=== PATIENT | female | born 1960 | race Caucasian/White ===

== ENCOUNTER 2019-04-07 05:39 | Day surgery (SDC) ==
--- NOTE | 2019-04-06 14:30 | EKG Report ---
Test Performed on : 04/06/2019 2:13:34 PM Test Reason : PAT Blood Pressure : / mmHG Vent. Rate : 087 BPM Atrial Rate : 187 BPM P-R Int : 000 ms QRS Dur : 086 ms QT Int : 350 ms P-R-T Axes : 000 043 068 degrees QTc Int : 421 ms Atrial fibrillation. Abnormal ECG When compared with ECG of 31-AUG-2016 20:00, Atrial fibrillation. has replaced Sinus rhythm. Vent. rate has increased BY 29 BPM Confirmed by Anthony REGAN, Harry Bentley ([id number]) on 04/08/2019 6:35:46 PM
[2019-04-06 14:43] LABS: HEMATOCRIT 40.4 % (37.0-47.0); HEMOGLOBIN 13.6 g/dL (12.0-16.0); MCH 30.4 PG (27-31); MCHC 33.7 g/dL (33-37); MCV 90.4 FL (81-99); MPV 9.6 FL (7.4-10.4); RBC 4.47 XMIL (4.2-5.4); RDW 13.1 % (11.5-14.5); WBC 11.59 X1000 (4.8-10.8)
[2019-04-06 15:42] LABS: AGAP 12; BUN 18 mg/dL (8-22); CALCIUM 9.2 mg/dL (8.8-10.2); CHLORIDE 101 mmol/L (98-107); COSMO 283; CREATININE 0.7 mg/dL (0.5-0.9); ESTIMATED GFR > 60; GLUCOSE 93 mg/dL (70-104); POTASSIUM 3.5 mmol/L (3.5-5.1); SODIUM 141 mmol/L (136-145); TCO2 28 mmol/L (25-35)
[2019-04-07] MEDS ORDERED: VANCOMYCIN 1 GM/NS 1 GM/250 ML IVPB ONE (07:26)
[2019-04-07] MEDS ORDERED: PEPCID ONE (07:26)
[2019-04-07] MEDS ORDERED: LR 1,000 ML ONE (07:26)
[2019-04-07] MEDS ORDERED: REGLAN ONE (07:26)
--- NOTE | 2019-04-07 07:48 | Diag Imaging Result Doc PS360 ---
EXAM: LYMPHOSCINTIGRAPHY W/IMG HISTORY: RIGHT AND LEFT BREAST MASS TECHNIQUE: Imaging following lymphoscintigraphy COMPARISON: None. FINDINGS: 989 uCi of lymphocytic administered. Images of different angles over the chest, axilla, and lower neck performed. There are at least three foci of increased activity lateral to the injection site, and possibly four areas of increased activity. IMPRESSION: Multiple areas of increased activity in the lateral left breast or axilla. Electronically signed by Abhinav Rizzo 04/07/2019 7:46 AM
[2019-04-07] MEDS ORDERED: XYLOCAINE-MPF 2% ONE (08:07)
[2019-04-07] MEDS ORDERED: QUELICIN (DOSE) ONE (08:07)
[2019-04-07] MEDS ORDERED: DIPRIVAN 1% ONE (08:08)
[2019-04-07] MEDS ORDERED: METHYLENE BLUE 0.5% ONE (08:09)
[2019-04-07] MEDS ORDERED: FENTANYL ONE (08:47)
[2019-04-07] MEDS ORDERED: ZEMURON ONE (08:52)
[2019-04-07] MEDS ORDERED: DECADRON ONE (10:08)
[2019-04-07] MEDS ORDERED: ZOFRAN ONE (10:08)
--- NOTE | 2019-04-07 11:47 | OPERATIVE NOTE ---
PROCEDURE DATE: 04/07/2019 PROCEDURE: Bilateral sentinel lymph node biopsy; bilateral modified radical mastectomy. SURGEON: Vish Bennett MD. CHICKEN RAISER: Marlo Romero RN. PREOPERATIVE DIAGNOSIS: Bilateral cancer of the breast. POSTOPERATIVE DIAGNOSIS: Bilateral cancer of the breast with one positive node on each axilla. DESCRIPTION OF OPERATION: After satisfactory general endotracheal anesthesia was achieved, both breasts and arms were prepped and draped in a sterile fashion. Sherman node injections had already occurred and nodes did light up in both axillae. I began on the left side, made an elliptical meli around the nipple areolar complex with a transverse extension into the axilla. We transversely incised the skin in the left axilla, dissected into the axillary fat. We then interrogated the left axilla with the gamma probe. A couple of hot areas were noted. We dissected deep into the axilla and clipped off the feeding lymphatics, removed 2 lymph nodes and got 10 second counts. They were sent for frozen section. While we waited for those results, we then incised the skin in an elliptical fashion in the area that was marked around the nipple areolar complex. We placed our skin hooks superiorly and developed a superior flap up to the clavicle. We then changed the hooks inferiorly and developed an inferior flap down in the rectus muscle. We then began dissecting the breast off the pectoralis major muscle from medial to lateral. As we reached the lateral portion of the pectoralis major, we got word back 1 of the 2 nodes were positive. So, we decided to proceed with dissection of the axilla. We then dissected deep and identified the latissimus muscle, followed it superiorly to its tendinous portion and just anterior to that we found the axillary vein. We then dissected lateral to medial. Small veins were ligated and divided coming off the inferior aspect of the vein. We then dissected at the chest wall and identified the long thoracic nerve and protected it. We dissected in the mid portion of the axillary vein, identified the thoracodorsal nerve as well. We then clamped the tissue between those 2 nerves, ligating it superiorly and then sweeping the tissue inferiorly until the nerves were seen to dive into the respective muscles. The rest of the axillary contents were dissected. We then took the left breast off the chest wall. We marked the apex of the axilla with a stitch and then handed off the specimen. Moist gauze was placed underneath the skin flaps and then the left axilla. We then turned our attention to the right side. Once again, we marked the skin in an elliptical fashion. I changed gloves at this point. We had a new knife for incision. We made a transverse incision in the right axilla, dissected deep into the axillary fat and we then identified a couple of nodes with activity and 2 nodes that did not have activity. We sent off four nodes. While we awaited for those frozen sections, we went ahead and incised the skin in an elliptical fashion around the nipple areolar complex. This tumor was more behind the nipple than the other one on the left, which was more lateral. We dissected then superiorly with the skin hooks in place up to the clavicle and inferiorly we dissected down to once again, the rectus muscle. We then began dissection of the breast from medial to lateral off the pectoralis major muscle until we reached the lateral border. We then got word back that 1 of the 4 nodes were positive. So again, we decided to dissect the axilla. We identified the latissimus muscle, followed it cephalad to its tendinous portion and then identified the axillary vein laterally in the axilla. We dissected from lateral to medial. Small veins were ligated and divided. We dissected against the chest wall and identified the long thoracic nerve. We then dissected the thoracodorsal nerve as well. We divided the tissue between these two. We then continued to dissect inferiorly until the nerves were seen to dive into the respective muscles. We then finished the axillary dissection on the right and then took the right breast off the chest wall. We again marked the apex of the axilla with a stitch and handed off the specimen. We irrigated out the chest wall and axilla. Hemostasis was satisfactory. We went ahead and placed a Jose drain medially underneath the superior skin flap and then one laterally going into the axilla. These drains were secured to the skin with 0 silk. We then closed the skin with janki. Negative pressure was applied. We did the same thing on the left. Placing the drain medially under the superior skin flap and laterally into the axilla securing the drain to the skin with 0 silk stitches. Hemostasis was satisfactory. We closed the skin with janki. Negative pressure was applied. Sterile dressings were applied. She tolerated it well and was sent to the recovery room in satisfactory condition. cc: Vish Bennett MD
[2019-04-07] MEDS ORDERED: NORCO-10 ONE (12:44)
[2019-04-07] MEDS ORDERED: NORCO-10 PO PRN (13:35)
[2019-04-07] MEDS ORDERED: DILAUDID IV PRN (13:35)
[2019-04-07] MEDS ORDERED: ZOFRAN IV PRN (13:35)
[2019-04-07] MEDS: LR 1,000 ML IV SCH ×2 (14:33→23:29)
[2019-04-07] MEDS: TYLENOL PO PRN (18:17)
[2019-04-07] MEDS: NICODERM PATCH TD SCH (18:17)
--- NOTE | 2019-04-07 20:07 | GENERAL SURGERY PROGRESS NOTE ---
DATE: 04/07/2019 EXAMINATION: She is awake and alert. Sitting up, doing well. Her drains are functioning. PLAN: Pain relief seems adequate. We will give her a nicotine patch. We will evaluate her in the morning. I am pleased with her progress as is she. cc: Vish Bennett MD
[2019-04-07] MEDS: CARDIZEM CD PO SCH (21:17)
[2019-04-08 06:54] LABS: HEMATOCRIT 33.8 % (37.0-47.0); HEMOGLOBIN 11.3 g/dL (12.0-16.0); MCH 30.5 PG (27-31); MCHC 33.4 g/dL (33-37); MCV 91.4 FL (81-99); MPV 9.8 FL (7.4-10.4); RBC 3.7 XMIL (4.2-5.4); RDW 12.9 % (11.5-14.5); WBC 11.22 X1000 (4.8-10.8)
[2019-04-08 07:06] LABS: AGAP 8; BUN 14 mg/dL (8-22); CALCIUM 8.7 mg/dL (8.8-10.2); CHLORIDE 100 mmol/L (98-107); COSMO 272; CREATININE 0.6 mg/dL (0.5-0.9); ESTIMATED GFR > 60; GLUCOSE 127 mg/dL (70-104); POTASSIUM 3.9 mmol/L (3.5-5.1); SODIUM 135 mmol/L (136-145); TCO2 27 mmol/L (25-35)
[2019-04-08] MEDS: PERIDEX MT SCH ×2 (08:42→21:01)
[2019-04-08] MEDS: NICODERM PATCH TD SCH (08:42)
[2019-04-08] MEDS: CARDIZEM CD PO SCH ×2 (08:42→21:01)
[2019-04-08] MEDS: TYLENOL PO PRN (08:42)
[2019-04-08] MEDS: LR 1,000 ML IV SCH (14:32)
--- NOTE | 2019-04-08 15:15 | GENERAL SURGERY PROGRESS NOTE ---
DATE: 04/08/2019 SUBJECTIVE: She is postop day #1 after bilateral mastectomy. She is doing generally well. She has been up. She has been ambulatory. OBJECTIVE: Vital Signs: She is afebrile. Heart rate 52, blood pressure 185/77. Exam: Her drains were functional. Bandages are dry. LABORATORY: White count 11,200, hemoglobin 11.3, hematocrit 33. Chemistry is okay. ASSESSMENT: She is progressing well. PLAN: The plan will be to discharge her tomorrow. cc: Vish Bennett MD
[2019-04-09] MEDS: TYLENOL PO PRN (10:46)
[2019-04-09] MEDS: CARDIZEM CD PO SCH (10:46)
[2019-04-09] MEDS: PERIDEX MT SCH (10:46)
[2019-04-09] MEDS: NICODERM PATCH TD SCH (10:47)
[2019-04-09 12:23] VITALS: BP 162/91
--- NOTE | 2019-04-09 16:19 | GENERAL SURGERY PROGRESS NOTE ---
DATE: 04/09/2019 SUBJECTIVE: Ms. Christina is now 2 days postop after bilateral modified radical mastectomy. OBJECTIVE: Her medial drains are down to 12 and 20 mL. The lateral drains are a little bit more. We will remove the medial drains today day. I changed her bandage, her wound is fine. PLAN: We will discharge her home. She knows to empty her drains at home and return to see me in the office in a week. cc: Vish Bennett MD
== END 2019-04-09 12:53 | disposition home or self-care (01) ==
LOC: OPS 05:39 → PAT 05:39 → 4N 05:39 → OPS 04-09 12:53
PROVIDERS: ATTEND Surgery
PROC: GE.BXSN (2019-04-07 08:22)
CPT/HCPCS: 78195; 80048; 85027; 88307; 88309; 88313; 88331; 93005; 93010; 94761; 94799; A9270; A9520; J0330; J1100; J2405; J3010; J3370; J7120; Q9968